=== PATIENT | female | born 1945 | race Caucasian/White ===

== ENCOUNTER → 2020-01-11 10:57 | Outpatient (BNVA) | payer MEDICARE, SELFPAY | PROVIDERS: PCP Family Medicine; Referring Provider Family Medicine; Visit Provider Nurse Practitioner Gerontology | DX: E11.65 Type 2 diabetes mellitus with hyperglycemia (principal); Z79.4 Long term (current) use of insulin; E78.5 Hyperlipidemia, unspecified; I10 Essential (primary) hypertension | CPT/HCPCS: 82947; 99212 ==

== ENCOUNTER 2020-02-08 09:29 | Emergency (ER) | payer MEDICARE, SELFPAY ==
--- NOTE | 2020-02-08 09:48 | ED.FEMALEGU ---
HPI - Female Genitourinary General Chief complaint: Urogenital-Female Stated complaint: uti? Time Seen by Provider: 02/08/20 09:48 Source: patient Mode of arrival: ambulatory Limitations: no limitations History of Present Illness HPI Narrative: 74 y/o female with history of diabetes (Aic 9%), HTN, gastritis, hypothyroidism presenting with 4-5 days of burning urination, urinary frequency and new urinary incontinence. She denies fever, chills, abdominal pain, N/V. She is eating and drinking normally. She has a history of UTI in the past but none in a few years. She is needing to wear a panty liner due to leaking urine. She states the pain is worse at the end of urination. She denies hematuria or flank pain. MD elicited complaint: dysuria, UTI and urinary incontinence Pertinent past history: recurrent UTIs (has not had a UTI in a few years ) Onset (ago): day(s) Location of symptoms: suprapubic Severity: moderate Female Urogenital Radiation: Non-Radiating Severity scale (1-10): 7 Quality of pain: aching Consistency: intermittent Vaginal discharge: none Vaginal bleeding: none Urinary symptoms: Dysuria, Urgency, Frequency and Foul Smelling Urine Exacerbating factors: urination Relieving factors: none Associated symptoms: denies other symptoms Treatment prior to arrival: none Sexual activity: No Patient : No Related Data Home Medications Medication Instructions Recorded Confirmed alendronate 70 mg tablet 70 mg PO QWEEK 12/05/19 01/11/20 apixaban 5 mg tablet 5 mg PO BID 12/05/19 01/11/20 calcium carbonate 500 mg calcium 500 mg PO ONCE tab 12/05/19 01/11/20 (1,250 mg) chewable tablet cholecalciferol (vitamin D3) 25 25 mcg PO DAILY 12/05/19 01/11/20 mcg (1,000 unit) tablet cyanocobalamin (vitamin B-12) 1,000 mcg PO DAILY 12/05/19 01/11/20 1,000 mcg tablet docusate sodium 100 mg capsule 100 mg PO BID 12/05/19 01/11/20 empagliflozin 25 mg tablet 25 mg PO DAILY 12/05/19 01/11/20 fluticasone propionate 50 0 mcg INTRANASAL 12/05/19 01/11/20 mcg/actuation nasal spray,suspension gabapentin 100 mg capsule 100 mg PO cap 12/05/19 01/11/20 insulin degludec 200 unit/mL (3 20 unit SUBCUT DAILY 12/05/19 01/11/20 mL) subcutaneous pen lancets 33 gauge #100 ea 12/05/19 01/11/20 lisinopril 5 mg tablet 5 mg PO DAILY 12/05/19 01/11/20 metformin 1,000 mg tablet 1,000 mg PO BID 12/05/19 01/11/20 multivitamin 1 tab PO DAILY 12/05/19 01/11/20 pantoprazole 40 mg tablet,delayed 40 mg PO DAILY 12/05/19 01/11/20 release Previous Rx's Medication Instructions Recorded pen needle, diabetic 32 gauge x #300 ea 01/05/20 insulin aspart U-100 100 unit/mL See Rx Instructions SUBCUT TID 90 01/11/20 (3 mL) subcutaneous pen Days #30 ml cefuroxime axetil 250 mg PO BID 7 Days #14 tab 02/08/20 Allergies Allergy/AdvReac Type Severity Reaction Status Date / Time Penicillins [PENICILLINS] Allergy Unknown UNKNOWN Verified 01/11/20 11:24 shrimp Allergy Unknown DIFFICULTY Verified 01/11/20 11:24 BREATHING Sulfa (Sulfonamide Allergy Unknown Unknown Verified 01/11/20 11:24 Antibiotics) Review of Systems Review of Systems: Constitutional: No Fever, No Chills Cardiovascular: No Chest Pain, No SOB Respiratory: No Cough, No Sputum Gastrointestinal: No Nausea, No Vomiting, No Diarrhea, No abdominal Pain Genitourinary: + Dysuria, + Urinary Frequency, No Hematuria, + Urinary incontinence Musculoskeletal: No joint pain, No Myalgias Skin: No Skin Lesions, No rash Neuro: No Weakness, No Numbness, No Dizziness, No Headache Endocrine: No Polyuria, No Polydipsia PMFSH Past Medical History Attestation statement: The following information was validated with the patient. Medical History Constipation Diabetes mellitus with hyperglycemia Diverticulitis Dizziness Erosive gastritis Essential hypertension Gastric ulcer Gastritis H pylori ulcer Hiatal hernia Hyperlipidemia LDL goal <100 Hypothyroidism Osteoporosis Vitamin B 12 deficiency Surgical History History of esophagogastroduodenoscopy (EGD) Hx of colonoscopy Hx of hysterectomy Hx of tubal ligation Family History Family History (Updated 12/05/19 @ 08:33 by LEIDA Gregg) Father Liver disease Mother Brain cancer Social History Social History (Updated 01/02/20 @ 13:43 by Cristian Bueno) Smoking Status: Never smoker Advance Directives: No Advance Directives Information Provided: Yes Physical Exam Vital Signs: Vital Signs: Last Vital Signs Temp 97.2 F 02/08/20 09:51 Pulse 101 H 02/08/20 09:51 Resp 16 02/08/20 09:51 BP 136/68 02/08/20 09:51 Pulse Ox 97 02/08/20 09:51 Body Mass Index 24.7 Appearance: Alert. Oriented X3. No acute distress. ENT: Pharynx normal. Neck: Normal inspection. Neck supple. CVS: Normal heart rate and rhythm. Pulses normal. Respiratory: No respiratory distress. Breath sounds normal. Abdomen: Soft with mild suprapubic tenderness, +BS x4. No CVA tenderness : normal external genitalia, no rash or excoriations, no visible vaginal discharge Skin: Skin warm and dry. Normal skin color. Normal skin turgor. No rashes. Extremities: No lower extremity edema. Neuro: Oriented X 3. No motor deficit. No sensory deficit. Course Course Course Narrative: 74 y/o female presenting with dysuria and urinary incontinence. She is vitally stable on arrival aside from mild tachycardia 101 - afebrile and she appears well. No fever, chills, N/V, CVA tenderness. Low suspicion for pyelonephritis. She does not appear to be septic at this time. UA is grossly positive. 1st dose of Ceftin given here, will continue abx for 1 week and have her follow up with PCP. Instructed to return if she develops fever, N/V, abd pain or persistent symptoms despite abx. She is stable for discharge. MDM - Female Genitourinary Differential Diagnosis Differential diagnosis: Likely urinary tract infection, vaginitis and cystitis Medical Records Attestation: I reviewed the patient's medical records. Lab Data Attestation: I reviewed the patient's lab results. Labs: Lab Results 02/08/20 Range/Units 09:45 Urine Color YELLOW Urine Appearance CLOUDY Urine pH 6.5 (5.0-8.0) Ur Specific [place] 1.015 (1.005-1.025) Urine Protein TRACE (NEG-TRACE) MG/DL Urine Glucose (UA) >=1000 H (NEG) MG/DL Urine Ketones NEG (NEG) MG/DL Urine Blood 1+ H (NEG) Urine Nitrite POS H (NEG) Ur Leukocyte Esterase 2+ H (NEG) Urine RBC 1-4 (0) /HPF Urine WBC 76-150 H (0-4) /HPF Ur Squamous Epith Cells NONE /LPF Urine Bacteria 2+ /LPF Discharge Plan Discharge Clinical Impression: Acute UTI Patient Disposition: Home, Self-Care Instructions: Urinary Tract Infection in Older Adults (ED) Additional Instructions: Your urine today showed infection, you are being started on antibiotics. Start them tonight because you were given your 1st dose in the ER. Stay hydrated, drink plenty of water. If you have persistent symptoms or develop fever, chills, abdominal pain, nausea, vomiting, or flank pain seek medical attention or come back to the ER for further evaluation. Follow up with your doctor this week. Prescriptions: New cefuroxime axetil 250 mg tablet 250 mg PO BID 7 Days Qty: 14 RF: 0 No Action (DME) pen needle, diabetic 32 gauge x needle See Rx Instructions ea .ROUTE QID Qty: 300 RF: 1 lisinopril 5 mg tablet 5 mg PO DAILY RF: 0 gabapentin 100 mg capsule 100 mg PO RF: 0 docusate sodium 100 mg capsule 100 mg PO BID RF: 0 cholecalciferol (vitamin D3) 25 mcg (1,000 unit) tablet 25 mcg PO DAILY RF: 0 (DME) lancets 33 gauge misc See Rx Instructions ea .ROUTE .MEDSUPPLY Qty: 100 RF: 0 pantoprazole 40 mg tablet,delayed release (DR/EC) 40 mg PO DAILY RF: 0 cyanocobalamin (vitamin B-12) 1,000 mcg tablet 1,000 mcg PO DAILY RF: 0 multivitamin Tablet 1 tab PO DAILY RF: 0 alendronate 70 mg tablet 70 mg PO QWEEK RF: 0 metformin 1,000 mg tablet 1,000 mg PO BID RF: 0 calcium carbonate 500 mg calcium (1,250 mg) tablet,chewable 500 mg PO ONCE RF: 0 Eliquis 5 mg tablet 5 mg PO BID RF: 0 Jardiance 25 mg tablet 25 mg PO DAILY RF: 0 fluticasone propionate 50 mcg/actuation spray,suspension 0 mcg intranasal RF: 0 Tresiba FlexTouch U-200 200 unit/mL (3 mL) insulin pen 20 unit subcut DAILY RF: 0 insulin aspart U-100 [Novolog Flexpen U-100 Insulin] 100 unit/mL (3 mL) insulin pen See Rx Instructions subcut TID 90 Days Qty: 30 RF: 0
[2020-02-08 09:51] VITALS: BP 136/68; PULSE 101; RESP 16; TEMP 36.2; O2SAT 97; BMI 24.7
[2020-02-08 09:58] LABS: Glucose Urine UA >=1000 MG/DL (NEG); Leukocyte Esterase Urine 2+ (NEG); Nitrite Urine POS (NEG); PH 6.5 (5.0-8.0); Specific Gravity - Urine 1.015 (1.005-1.025); Urine Blood 1+ (NEG); Urine Ketones NEG (NEG); Urine Protein TRACE MG/DL (NEG-TRACE)
[2020-02-08 10:00] LABS: Appearance Urine CLOUDY; Color Urine YELLOW
[2020-02-08 10:12] LABS: Bacteria Urine 2+ /LPF
== END 2020-02-08 11:05 | disposition home or self-care (01) ==
PROVIDERS: Emergency Provider Emergency Medicine; PCP Family Medicine
DX: N39.0 Urinary tract infection, site not specified (principal); E11.9 Type 2 diabetes mellitus without complications; I10 Essential (primary) hypertension; E78.5 Hyperlipidemia, unspecified
CPT/HCPCS: 81001; 87086; 87088; 87186; 99283

== ENCOUNTER → 2020-07-13 08:14 | Outpatient (BNVA) | payer MEDICARE, SELFPAY | PROVIDERS: PCP Family Medicine; Visit Provider Nurse Practitioner Gerontology | CPT/HCPCS: Q3014 ==

== ENCOUNTER 2020-10-13 20:41 | Emergency (ER) | payer MEDICARE, SELFPAY ==
--- NOTE | ~2020-10-13 | CT_ITS ---
EXAMINATION: CT HEAD WITHOUT CONTRAST CLINICAL INFORMATION: Fall. COMPARISON: CT head dated 07/14/2018. TECHNIQUE: Contiguous axial imaging was performed from the skull base to vertex without intravenous administration of contrast. This CT examination was performed using dose optimization techniques as appropriate, variously including the following: *Automated exposure control. *Adjustment of mA and/or kV according to patient size (this includes techniques or standardized protocols for targeted exams where dose is matched to indication/reason for exam; i.e. extremities or head). *Use of iterative reconstruction technique. DLP: 555 mGy-cm FINDINGS: The ventricles and sulci are enlarged consistent with diffuse atrophy. No visualized masses or midline shift are seen. There is no intra-axial or extra-axial hemorrhage. There are no fluid collections. Decreased attenuation is seen in the periventricular white matter compatible with chronic small vessel ischemic disease. The gilbert-white discrimination is preserved. The included paranasal sinuses and mastoid air cells are well aerated. The calvarium is intact. CT/CT head/brain wo con IMPRESSION: No intracranial hemorrhage or mass effect. Generalized atrophy and chronic small vessel white matter ischemic changes. No significant interval change.
--- NOTE | ~2020-10-13 | XR_ITS ---
EXAMINATION: XR KNEE, LEFT CLINICAL INFORMATION: Fall. Bruising. Pain. COMPARISON: None TECHNIQUE: Four views of the left knee. FINDINGS: No acute fracture or dislocation. No significant joint space narrowing or marginal osteophytes. No osseous erosion. No abnormal soft tissue calcification. No significant joint effusion. XR/XR knee LT 4V IMPRESSION: Unremarkable examination.
[2020-10-13 20:45] VITALS: BP 145/64; PULSE 131; RESP 20; O2SAT 97; BMI 20.9
--- NOTE | 2020-10-13 21:13 | ECG_ITS ---
Test Reason : FALL Blood Pressure : / mmHG Vent. Rate : 088 BPM Atrial Rate : 127 BPM P-R Int : 000 ms QRS Dur : 100 ms QT Int : 362 ms P-R-T Axes : 000 -15 033 degrees QTc Int : 438 ms Atrial fibrillation Abnormal ECG When compared with ECG of 14-MAY-2019 07:47, Atrial fibrillation has replaced Sinus rhythm Referred By: Donna Son Electronically Signed By:MAGGIE MITCHELL
--- NOTE | 2020-10-13 21:32 | ED_ITS ---
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 Otherwise, she denies any fever, chills, GI symptoms, chest pain/palpitations, but states that she has been having pain/burning on urination. Related Data Home Medications Medication Instructions Recorded Confirmed alendronate 70 mg tablet 70 mg PO QWEEK 12/05/19 07/13/20 apixaban 5 mg tablet 5 mg PO BID 12/05/19 07/13/20 calcium carbonate 500 mg calcium 500 mg PO ONCE tab 12/05/19 07/13/20 (1,250 mg) chewable tablet cholecalciferol (vitamin D3) 25 25 mcg PO DAILY 12/05/19 07/13/20 mcg (1,000 unit) tablet cyanocobalamin (vitamin B-12) 1,000 mcg PO DAILY 12/05/19 07/13/20 1,000 mcg tablet docusate sodium 100 mg capsule 100 mg PO BID 12/05/19 07/13/20 fluticasone propionate 50 0 mcg INTRANASAL 12/05/19 07/13/20 mcg/actuation nasal spray,suspension gabapentin 100 mg capsule 100 mg PO cap 12/05/19 07/13/20 lancets 33 gauge #100 ea 12/05/19 07/13/20 lisinopril 5 mg tablet 5 mg PO DAILY 12/05/19 07/13/20 metformin 1,000 mg tablet 1,000 mg PO BID 12/05/19 07/13/20 multivitamin 1 tab PO DAILY 12/05/19 07/13/20 pantoprazole 40 mg tablet,delayed 40 mg PO DAILY 12/05/19 07/13/20 release Previous Rx's Medication Instructions Recorded cefuroxime axetil 250 mg tablet 250 mg PO BID 7 Days #14 tab 02/08/20 pen needle, diabetic 32 gauge x #300 ea 06/21/20 insulin degludec 200 unit/mL (3 20 unit SUBCUT DAILY #9 ml 06/29/20 mL) subcutaneous pen (Tresiba FlexTouch U-200 insulin) empagliflozin 25 mg tablet 25 mg PO QAM #90 tab 08/04/20 (Jardiance) insulin aspart U-100 100 unit/mL See Rx Instructions SUBCUT TID 90 08/24/20 (3 mL) subcutaneous pen (Novolog Days #30 ml Flexpen U-100 Insulin aspart) Allergies Allergy/AdvReac Type Severity Reaction Status Date / Time Penicillins [PENICILLINS] Allergy Unknown UNKNOWN Verified 07/13/20 08:36 shrimp Allergy Unknown DIFFICULTY Verified 07/13/20 08:36 BREATHING Sulfa (Sulfonamide Allergy Unknown Unknown Verified 07/13/20 08:36 Antibiotics) Review of Systems Review of Systems: Pertinent positives and negatives as stated in HPI 10 point review of systems is otherwise negative. [facility] Past Medical History Medical History Constipation Diabetes mellitus with hyperglycemia Diverticulitis Dizziness Erosive gastritis Essential hypertension Gastric ulcer Gastritis H pylori ulcer Hiatal hernia Hyperlipidemia LDL goal <100 Hypothyroidism Osteoporosis Vitamin B 12 deficiency Surgical History History of esophagogastroduodenoscopy (EGD) Hx of colonoscopy Hx of hysterectomy Hx of tubal ligation Family History Family History Father Liver disease Mother Brain cancer Social History Social History Household Members: None Advance Directives: No Advance Directives Information Provided: No Physical Exam Vital Signs: Vital Signs: Last Vital Signs Pulse 84 10/13/20 23:32 Resp 15 10/13/20 23:32 BP 118/67 10/13/20 23:32 Pulse Ox 96 10/13/20 23:32 Body Mass Index 20.9 VITAL SIGNS: Reviewed. GENERAL: Well developed, well nourished, in no acute distress. HEAD: Normocephalic/contusion-abrasion to mid forehead EYES: PERRLA, EOMI intact without pain, no nystagmus EARS: Ext canals without abnormality, TMs non-bulging and non-erythematous NOSE: Nares patent bilateral, no septal hematoma but erythema noted to the bridge of the nose without deformity OROPHARYNX: no oral lesions noted, posterior pharynx clear and non-erythematous without noted tonsillar enlargement/erythema/exudates NECK: Supple, no adenopathy LUNGS: Normal breath sounds. No adventitious sounds or accessory muscle use. SpO2<97> CARDIOVASCULAR: IRR/IRR without noted murmurs, no JVD or lower extremity edema. ABDOMEN: Soft, non-tender, non-distended with bowel sounds. MUSCULOSKELETAL: Abrasions to bilateral knees, left knee include some bruising without laceration and pain on palpation EXTREMITIES: No cyanosis, clubbing or edema. SKIN: Inspection of the skin reveals no rashes, abrasions noted to bilateral knees/right 5th MCP on the dorsal aspect/thenar aspect of the right hand NEUROLOGIC: Alert and oriented x 4. Strength and sensation to light touch were grossly intact x 4, no pronator drift, cranial nerves 2-12 grossly intact Course Course Course Narrative: 75-year-old female with history and clinical presentation consistent with mechanical fall but due to expressed dizziness prior to the fall will evaluate for evidence of infection, anemia, or possible arrhythmia although patient is currently nonfocal and hemodynamically stable. Review of all investigations consistent with UTI, as well as hyperglycemia, patient received both antibiotics as well as 1 L of IV fluids with repeat point of care glucose-274. Otherwise, there were no acute findings. Patient was otherwise discharged home in stable condition with remaining course of antibiotics. MDM - Fall Lab Data Result diagrams: 10/13/20 21:39 10/13/20 21:39 Labs: Lab Results 10/13/20 10/13/20 10/13/20 Range/Units 21:39 21:39 21:39 WBC 7.7 (4.8-10.8) X10*3/uL RBC 4.28 (4.20-5.50) X10*6/uL Hgb 13.5 (12.0-16.0) g/dl Hct 41.6 (37-47) % MCV 97.2 (80-98) fL MCH 31.5 (27.0-33.0) pg MCHC 32.5 (31.0-35.0) g/dl RDW 12.3 (11.0-16.0) % Plt Count 214 (160-400) X10*3/uL MPV 10.5 (9.4-12.3) fL Immature Gran % (Auto) 0.3 (0.0-0.4) % Neut % (Auto) 64.7 (45-73) % Lymph % (Auto) 24.4 (20-40) % [place] % (Auto) 9.3 (2-11) % Eos % (Auto) 1.0 (0-4) % Baso % (Auto) 0.3 (0-2) % Lymph # (Auto) 1.9 (1.2-4.9) X10*3/uL [place] # (Auto) 0.7 (0.1-1.2) X10*3/uL Eos # (Auto) 0.1 (0.0-0.4) X10*3/uL Baso # (Auto) 0.0 (0.0-0.2) X10*3/uL Abs Immat Gran (auto) 0.02 (0.00-0.03) X10*3/uL Absolute Neuts (auto) 5.0 (2.0-8.3) X10*3/uL Absolute Nucleated RBC 0.000 (0.0-0.012) X10*3/uL Nucleated RBC % (auto) 0.0 (0.0-0.2) /100WBC PT 16.0 H (9.9-13.0) SEC INR 1.4 H (0.9-1.1) Sodium 139 (135-145) mmol/L Potassium 4.6 (3.3-5.1) mmol/L Chloride 106 (96-108) mmol/L Carbon Dioxide 21 L (22-29) mmol/L Anion Gap 17 (12-20) BUN 17 H (9-16) mg/dL Creatinine 1.00 (0.5-1.4) mg/dL Estim Creat Clear Calc 42.3 Estimated GFR 54 Random Glucose 407 H* (60-115) mg/dL Calcium 10.0 (8.4-10.2) mg/dL Total Bilirubin 0.4 (0.0-1.0) mg/dL AST 83 H (5-31) U/L ALT 89 H (0-31) U/L Alkaline Phosphatase 97 (39-117) U/L Total Protein 7.8 (6.5-8.0) g/dL Albumin 4.3 (3.5-5.0) g/dL Urine Color Urine Appearance Urine pH (5.0-8.0) Ur Specific [place] (1.005-1.025) Urine Protein (NEG-TRACE) MG/DL Urine Glucose (UA) (NEG) MG/DL Urine Ketones (NEG) MG/DL Urine Blood (NEG) Urine Nitrite (NEG) Ur Leukocyte Esterase (NEG) Urine RBC (0) /HPF Urine WBC (0-4) /HPF Ur Squamous Epith Cells /LPF Urine Bacteria /LPF Acetone, Qual Negative (Negative) 10/13/20 Range/Units 21:44 WBC (4.8-10.8) X10*3/uL RBC (4.20-5.50) X10*6/uL Hgb (12.0-16.0) g/dl Hct (37-47) % MCV (80-98) fL MCH (27.0-33.0) pg MCHC (31.0-35.0) g/dl RDW (11.0-16.0) % Plt Count (160-400) X10*3/uL MPV (9.4-12.3) fL Immature Gran % (Auto) (0.0-0.4) % Neut % (Auto) (45-73) % Lymph % (Auto) (20-40) % [place] % (Auto) (2-11) % Eos % (Auto) (0-4) % Baso % (Auto) (0-2) % Lymph # (Auto) (1.2-4.9) X10*3/uL [place] # (Auto) (0.1-1.2) X10*3/uL Eos # (Auto) (0.0-0.4) X10*3/uL Baso # (Auto) (0.0-0.2) X10*3/uL Abs Immat Gran (auto) (0.00-0.03) X10*3/uL Absolute Neuts (auto) (2.0-8.3) X10*3/uL Absolute Nucleated RBC (0.0-0.012) X10*3/uL Nucleated RBC % (auto) (0.0-0.2) /100WBC PT (9.9-13.0) SEC INR (0.9-1.1) Sodium (135-145) mmol/L Potassium (3.3-5.1) mmol/L Chloride (96-108) mmol/L Carbon Dioxide (22-29) mmol/L Anion Gap (12-20) BUN (9-16) mg/dL Creatinine (0.5-1.4) mg/dL Estim Creat Clear Calc Estimated GFR Random Glucose (60-115) mg/dL Calcium (8.4-10.2) mg/dL Total Bilirubin (0.0-1.0) mg/dL AST (5-31) U/L ALT (0-31) U/L Alkaline Phosphatase (39-117) U/L Total Protein (6.5-8.0) g/dL Albumin (3.5-5.0) g/dL Urine Color STRAW Urine Appearance CLEAR Urine pH 5.5 (5.0-8.0) Ur Specific [place] 1.010 (1.005-1.025) Urine Protein NEG (NEG-TRACE) MG/DL Urine Glucose (UA) >=1000 H (NEG) MG/DL Urine Ketones NEG (NEG) MG/DL Urine Blood NEG (NEG) Urine Nitrite POS H (NEG) Ur Leukocyte Esterase NEG (NEG) Urine RBC 0 (0) /HPF Urine WBC 50-75 H (0-4) /HPF Ur Squamous Epith Cells NONE /LPF Urine Bacteria 4+ /LPF Acetone, Qual (Negative) ECG Data Attestation: I personally reviewed and interpreted this ECG as follows: Prior ECG tracings: available for review (05/14/2019 no acute changes on comparison) Interpretation: Atrial fibrillation, HR-88, no STEMI, QRS/QTC are within normal limits. Discharge Plan Discharge Clinical Impression: Accident due to mechanical fall without injury, Abrasion, Acute UTI Patient Disposition: Home, Self-Care Instructions: Fall Prevention for Older Adults (ED), Urinary Tract Infection in Older Adults (ED), Abrasion (ED) Additional Instructions: 1. Reanude todos los medicamentos caseros seg?n lo prescrito. 2. Complete todo el ciclo de antibi?ticos que le hayan recetado para larsen infecci?n del tracto urinario. 3. Jessenia un seguimiento con larsen proveedor de atenci?n primaria el lunes por la ma?gaurav para tommy reevaluaci?n y un tratamiento ambulatorio adicional. Regrese a la sofia de emergencias por un empeoramiento rajiv de los s?ntomas. Prescriptions: No Action (DME) pen needle, diabetic 32 gauge x 5/32 needle See Rx Instructions ea .ROUTE QID Qty: 300 RF: 1 insulin degludec [Tresiba FlexTouch U-200] 200 unit/mL (3 mL) insulin pen 20 unit subcut DAILY Qty: 9 RF: 0 empagliflozin [Jardiance] 25 mg tablet 25 mg PO QAM Qty: 90 RF: 1 insulin aspart U-100 [Novolog Flexpen U-100 Insulin] 100 unit/mL (3 mL) insulin pen See Rx Instructions subcut TID 90 Days Qty: 30 RF: 1 cefuroxime axetil 250 mg tablet 250 mg PO BID 7 Days Qty: 14 RF: 0 lisinopril 5 mg tablet 5 mg PO DAILY RF: 0 gabapentin 100 mg capsule 100 mg PO RF: 0 docusate sodium 100 mg capsule 100 mg PO BID RF: 0 cholecalciferol (vitamin D3) 25 mcg (1,000 unit) tablet 25 mcg PO DAILY RF: 0 (DME) lancets 33 gauge misc See Rx Instructions ea .ROUTE .MEDSUPPLY Qty: 100 RF: 0 pantoprazole 40 mg tablet,delayed release (DR/EC) 40 mg PO DAILY RF: 0 cyanocobalamin (vitamin B-12) 1,000 mcg tablet 1,000 mcg PO DAILY RF: 0 multivitamin Tablet 1 tab PO DAILY RF: 0 alendronate 70 mg tablet 70 mg PO QWEEK RF: 0 metformin 1,000 mg tablet 1,000 mg PO BID RF: 0 calcium carbonate 500 mg calcium (1,250 mg) tablet,chewable 500 mg PO ONCE RF: 0 Eliquis 5 mg tablet 5 mg PO BID RF: 0 fluticasone propionate 50 mcg/actuation spray,suspension 0 mcg intranasal RF: 0 Referrals: Physician,Unknown [Primary Care Provider] - 2 days Print Language: Portuguese
[2020-10-13 21:43] LABS: MANUAL DIFF FLAG NO
[2020-10-13 21:47] LABS: Basophils Percent Auto 0.3 % (0-2); Eosinophils Absolute Auto 0.1 X10*3/uL (0.0-0.4); Hematocrit 41.6 % (37-47); Hemoglobin 13.5 g/dl (12.0-16.0); Imm Gran Abs Auto 0.02 X10*3/uL (0.00-0.03); Imm Gran Pct Auto 0.3 % (0.0-0.4); Lymphocytes Absolute Auto 1.9 X10*3/uL (1.2-4.9); Lymphocytes Percent Auto 24.4 % (20-40); Mean Corpuscular HGB Conc 32.5 g/dl (31.0-35.0); Mean Corpuscular Hemoglobin 31.5 pg (27.0-33.0); Mean Corpuscular Volume 97.2 fL (80-98); Mean Platelet Volume 10.5 fL (9.4-12.3); Monocytes Absolute Auto 0.7 X10*3/uL (0.1-1.2); Monocytes Percent Auto 9.3 % (2-11); Neutrophils Percent Auto 64.7 % (45-73); Platelet Count 214 X10*3/uL (160-400); Red Blood Count 4.28 X10*6/uL (4.20-5.50); Red Cell Distribution Width 12.3 % (11.0-16.0); White Blood Count 7.7 X10*3/uL (4.8-10.8)
[2020-10-13 21:54] VITALS: BP 199/84; PULSE 113; RESP 16; O2SAT 96
[2020-10-13 21:55] LABS: Glucose Urine UA >=1000 MG/DL (NEG); Leukocyte Esterase Urine NEG (NEG); Nitrite Urine POS (NEG); PH 5.5 (5.0-8.0); UACC Culture Trigger YES; Urine Blood NEG (NEG); Urine Ketones NEG (NEG); Urine Protein NEG (NEG-TRACE)
[2020-10-13] MEDS: Acetaminophen 325 MG TABLET 975 MG PO (21:55)
[2020-10-13 21:57] LABS: Appearance Urine CLEAR; Color Urine STRAW
--- NOTE | 2020-10-13 22:01 | PC.NURSE ---
BP 199/84 notified
[2020-10-13 22:16] LABS: Bacteria Urine 4+ /LPF; RBC Urine 0 /HPF (0); WBC Urine 50-75 /HPF (0-4)
[2020-10-13 22:17] LABS: INTERNATIONAL NORM RATIO 1.4 (0.9-1.1)
[2020-10-13 22:28] LABS: Alanine Aminotransferase 89 U/L (0-31); Albumin Level 4.3 g/dL (3.5-5.0); Alkaline Phosphatase 97 U/L (39-117); Anion Gap 17 (12-20); Aspartate Amino Transferase 83 U/L (5-31); Bilirubin Total 0.4 mg/dL (0.0-1.0); Blood Urea Nitrogen 17 mg/dL (9-16); Carbon Dioxide 21 mmol/L (22-29); Chloride 106 mmol/L (96-108); Creatinine Clr Calc Pharmacy 42.3; Estimated Glomerular Filt Rate 54; Glucose Random 407 mg/dL (60-115); Potassium 4.6 mmol/L (3.3-5.1); Sodium 139 mmol/L (135-145); Total Protein 7.8 g/dL (6.5-8.0)
--- NOTE | 2020-10-13 22:29 | PC.NURSE ---
Blood glucose 407 ([facility]) notified
[2020-10-13] MEDS: cefTRIAXone sodium 1 GM in 0.9 % Sodium Chloride 50 ML IV (22:57)
[2020-10-13] MEDS: 0.9 % Sodium Chloride 1,000 ML 999 ML IV (22:58)
[2020-10-13 22:59] VITALS: PULSE 100; RESP 16
[2020-10-13 23:01] LABS: Acetone, serum QL Negative (Negative)
[2020-10-13 23:32] VITALS: BP 118/67; PULSE 84; RESP 15; O2SAT 96
--- NOTE | 2020-10-13 23:59 | PC.NURSE ---
POC 270 MD notified
[2020-10-14 00:02] LABS: Glucose, Whole Blood 270 mg/dL (60-115)
[2020-10-14] MEDS: Bacitracin Oint 14 GM TUBE 1 APPL TOPICAL (00:20)
== END 2020-10-14 00:33 | disposition home or self-care (01) ==
PROVIDERS: Emergency Provider Student in an Organized Health Care Education/Training Program
DX: N39.0 Urinary tract infection, site not specified (principal); S00.81XA Abrasion of other part of head, initial encounter; S80.212A Abrasion, left knee, initial encounter; S80.211A Abrasion, right knee, initial encounter; S60.511A Abrasion of right hand, initial encounter; W01.0XXA Fall on same level from slipping, tripping and stumbling without subsequent striking against object, initial encounter; Y93.01 Activity, walking, marching and hiking; Y92.480 Sidewalk as the place of occurrence of the external cause; Y99.9 Unspecified external cause status
CPT/HCPCS: 36415; 70450; 73564; 80053; 81001; 82009; 82947; 85025; 85610; 87086; 87088; 87186; 93005; 96361; 96365; 99284; J0696

== ENCOUNTER 2020-10-15 14:00 | Emergency (ER) | payer MEDICARE, SELFPAY ==
--- NOTE | ~2020-10-15 | CT_ITS ---
EXAMINATION: CT CHEST WITHOUT CONTRAST CLINICAL INFORMATION: post fall R anterior upper rib pain and swelling COMPARISON: Chest radiograph 05/14/2019 TECHNIQUE: Multidetector volumetric CT imaging of the chest was done. Axial MIP volume rendering provided. Sagittal and coronal reformatted images were obtained. This CT examination was performed using dose optimization techniques as appropriate, variously including the following: *Automated exposure control *Adjustment of mA and/or kV according to patient size (this includes techniques or standardized protocols for targeted exams where dose is matched to indication/reason for exam; i.e. extremities or head) *Use of iterative reconstruction technique DLP: 223 mGy-cm FINDINGS: LUNGS: There is a 2 mm subpleural right upper lobe nodule (7:123). There is a tiny calcified pleural-based granuloma in the left lower lobe (7:225). The lungs are otherwise clear with no evidence of inflammation or worrisome nodules. MEDIASTINUM: The thyroid is atrophic. Heart size normal. Calcifications present in the aortic leaflets with mild coronary calcium. No mediastinal or hilar lymphadenopathy. No mediastinal hematomas. PLEURA: There is no pleural effusion or pneumothorax. No pleural mass or thickening. AXILLA: No lymphadenopathy. UPPER ABDOMEN: Unremarkable. OSSEOUS STRUCTURES: No rib fractures seen. Degenerative changes are present in the spine with scoliosis convex to the right. CT/CT chest wo con IMPRESSION: No acute intrathoracic disease seen status post fall. Incidentally noted tiny 2 mm subpleural noncalcified nodule which almost certainly needs no further follow-up. According to the UPDATED 2017 Fleischner Society recommendations, the advised follow-up imaging for solid nodules < 6 mm is: LOW RISK PATIENT: No routine follow-up. HIGH RISK PATIENT: Optional CT at 12 months.
[2020-10-15 14:39] VITALS: BP 139/71; PULSE 110; RESP 18; TEMP 37; O2SAT 96
--- NOTE | 2020-10-15 16:32 | ED.GENADULT ---
HPI - General Adult General Chief complaint: General Medical Stated complaint: lump on chest bone Time Seen by Provider: 10/15/20 16:31 Source: patient, family, old records reviewed and dedicated owner operator Mode of arrival: ambulatory Limitations: no limitations History of Present Illness HPI narrative: 75 yo female hx of HLD, DM, afib on eliquis, HTN here after witnessed fall on 10/13 - had negative knee xray and head CT on 10/13 dx with UTI on ceftin escobedo S E. Coli comes in today with c/o persistent swelling and pain over R upper anterior rib since fall - no xray or CT scan done at that time, overall is improving otherwise MD complaint: chest wall pain Onset (ago): day(s) (2) Location: chest Radiation: non-radiation Severity: moderate Quality: aching Pain Consistency: constant Relieving factors: none Exacerbating factors: movement and other (palpation) Associated symptoms: denies other symptoms Treatments prior to arrival: none Related Data Home Medications Medication Instructions Recorded Confirmed alendronate 70 mg tablet 70 mg PO QWEEK 12/05/19 07/13/20 apixaban 5 mg tablet 5 mg PO BID 12/05/19 07/13/20 calcium carbonate 500 mg calcium 500 mg PO ONCE tab 12/05/19 07/13/20 (1,250 mg) chewable tablet cholecalciferol (vitamin D3) 25 25 mcg PO DAILY 12/05/19 07/13/20 mcg (1,000 unit) tablet cyanocobalamin (vitamin B-12) 1,000 mcg PO DAILY 12/05/19 07/13/20 1,000 mcg tablet docusate sodium 100 mg capsule 100 mg PO BID 12/05/19 07/13/20 fluticasone propionate 50 0 mcg INTRANASAL 12/05/19 07/13/20 mcg/actuation nasal spray,suspension gabapentin 100 mg capsule 100 mg PO cap 12/05/19 07/13/20 lancets 33 gauge #100 ea 12/05/19 07/13/20 lisinopril 5 mg tablet 5 mg PO DAILY 12/05/19 07/13/20 metformin 1,000 mg tablet 1,000 mg PO BID 12/05/19 07/13/20 multivitamin 1 tab PO DAILY 12/05/19 07/13/20 pantoprazole 40 mg tablet,delayed 40 mg PO DAILY 12/05/19 07/13/20 release Previous Rx's Medication Instructions Recorded cefuroxime axetil 250 mg tablet 250 mg PO BID 7 Days #14 tab 02/08/20 pen needle, diabetic 32 gauge x #300 ea 06/21/20 insulin degludec 200 unit/mL (3 20 unit SUBCUT DAILY #9 ml 06/29/20 mL) subcutaneous pen (Tresiba FlexTouch U-200 insulin) empagliflozin 25 mg tablet 25 mg PO QAM #90 tab 08/04/20 (Jardiance) insulin aspart U-100 100 unit/mL See Rx Instructions SUBCUT TID 90 08/24/20 (3 mL) subcutaneous pen (Novo Days #30 ml Flexpen U-100 Insulin aspart) cefdinir 300 mg capsule 300 mg PO Q12H 5 Days #10 cap 10/14/20 lidocaine 4 % topical patch 1 patch TOPICAL DAILY PRN #10 ea 10/15/20 Allergies Allergy/AdvReac Type Severity Reaction Status Date / Time Penicillins [PENICILLINS] Allergy Unknown UNKNOWN Verified 07/13/20 08:36 shrimp Allergy Unknown DIFFICULTY Verified 07/13/20 08:36 BREATHING Sulfa (Sulfonamide Allergy Unknown Unknown Verified 07/13/20 08:36 Antibiotics) Review of Systems Review of Systems: Constitutional : No Weight loss, No Fever, No Chills ENT/Mouth : No sore throat, No Rhinorrhea Eyes: No Eye Pain, No Swelling Cardiovascular : pos Chest Pain, no SOB, no Dyspnea on Exertion, No Orthopnea, No Edema, No Palpitations Respiratory : No Cough, No Sputum Gastrointestinal : no Nausea, No Vomiting, No Diarrhea, No abdominal Pain, No Hematochezia, No Melena Genitourinary : No Dysuria, No Urinary Frequency Musculoskeletal : No joint pain, No Myalgias, No Joint Swelling Skin : No Skin Lesions, No rash Neuro : No Weakness, No Numbness, No Dizziness, No Headache Psych : No Anxiety/Panic, No Depression Heme/Lymph: No Bruising, No Lymphadenopathy Endocrine : No Polyuria, No Polydipsia All other systems reviewed and are negative [facility] Past Medical History Attestation statement: The following information was validated with the patient. Source: old records reviewed Medical History Atrial fibrillation Constipation Diabetes mellitus with hyperglycemia Diverticulitis Dizziness Erosive gastritis Essential hypertension Gastric ulcer Gastritis H pylori ulcer Hiatal hernia Hyperlipidemia LDL goal <100 Hypothyroidism Osteoporosis Vitamin B 12 deficiency Surgical History History of esophagogastroduodenoscopy (EGD) Hx of colonoscopy Hx of hysterectomy Hx of tubal ligation Family History Family History Father Liver disease Mother Brain cancer Social History Social History Household Members: None Alcohol intake: unknown Patient Tobacco Use Status: Never used Tobacco Advance Directives: No Advance Directives Information Provided: Yes Physical Exam Vital Signs: Vital Signs: Last Vital Signs Temp 98.6 F 10/15/20 14:39 Pulse 110 H 10/15/20 14:39 Resp 18 10/15/20 14:39 BP 139/71 10/15/20 14:39 Pulse Ox 96 10/15/20 14:39 Body Mass Index 20.0 Appearance: Alert. Oriented X3. No acute distress. Eyes: Pupils equal, round and reactive to light. ENT: Pharynx normal. healing contusion and abrasions to forehead Neck: Normal inspection. Neck supple. CVS: Normal heart rate and rhythm. Pulses normal. Chest: ttp along anterior upper chest area near 3/4th ribs contusion felt no crepitus no skin changes Respiratory: No respiratory distress. Breath sounds normal. Abdomen: Soft and nontender. Skin: Skin warm and dry. Normal skin color. Normal skin turgor. Extremities: No lower extremity edema. No calf ttp L knee healing abrasions noted Neuro: Oriented X 3. No motor deficit. No sensory deficit. Course Course Course Narrative: chest CT negative for trauma will treat as contusion Medical Decision Making MDM Narrative Medical decision making narrative: 75 yo female hx of HLD, DM, afib on eliquis, HTN here after witnessed fall on 10/13 - had negative knee xray and head CT on 10/13 dx with UTI on ceftin escobedo S E. Coli comes in today with c/o persistent swelling and pain over R upper anterior rib since fall - no xray or CT scan done at that time. Complaint at this time is isolated chest injury - will obtain CT scan to r/o fracture/hematoma of chest wall. Otherwise improving. Dispo per results and findings. Discharge Plan Discharge Clinical Impression: Chest wall hematoma Qualifiers: Encounter type: initial encounter Laterality: right Qualified Code(s): S20.211A - Contusion of right front wall of thorax, initial encounter Patient Disposition: Home, Self-Care Instructions: Chest Wall Pain (ED), Hematoma (ED) Additional Instructions: return to ED for any worsening symptoms or concerns Prescriptions: New lidocaine 4 % adhesive patch,medicated 1 patch topical DAILY PRN (Reason: pain) Qty: 10 RF: 0 No Action (DME) pen needle, diabetic 32 gauge x /32 needle See Rx Instructions ea .ROUTE QID Qty: 300 RF: 1 insulin degludec [Tresiba FlexTouch U-200] 200 unit/mL (3 mL) insulin pen 20 unit subcut DAILY Qty: 9 RF: 0 empagliflozin [Jardiance] 25 mg tablet 25 mg PO QAM Qty: 90 RF: 1 insulin aspart U-100 [Novolog Flexpen U-100 Insulin] 100 unit/mL (3 mL) insulin pen See Rx Instructions subcut TID 90 Days Qty: 30 RF: 1 cefuroxime axetil 250 mg tablet 250 mg PO BID 7 Days Qty: 14 RF: 0 cefdinir 300 mg capsule 300 mg PO Q12H 5 Days Qty: 10 RF: 0 lisinopril 5 mg tablet 5 mg PO DAILY RF: 0 gabapentin 100 mg capsule 100 mg PO RF: 0 docusate sodium 100 mg capsule 100 mg PO BID RF: 0 cholecalciferol (vitamin D3) 25 mcg (1,000 unit) tablet 25 mcg PO DAILY RF: 0 (DME) lancets 33 gauge misc See Rx Instructions ea .ROUTE .MEDSUPPLY Qty: 100 RF: 0 pantoprazole 40 mg tablet,delayed release (DR/EC) 40 mg PO DAILY RF: 0 cyanocobalamin (vitamin B-12) 1,000 mcg tablet 1,000 mcg PO DAILY RF: 0 multivitamin Tablet 1 tab PO DAILY RF: 0 alendronate 70 mg tablet 70 mg PO QWEEK RF: 0 metformin 1,000 mg tablet 1,000 mg PO BID RF: 0 calcium carbonate 500 mg calcium (1,250 mg) tablet,chewable 500 mg PO ONCE RF: 0 Eliquis 5 mg tablet 5 mg PO BID RF: 0 fluticasone propionate 50 mcg/actuation spray,suspension 0 mcg intranasal RF: 0 Referrals: Cassia Putnam DO [Primary Care Provider] - 5 days (if not better) Print Language: Tamazight
[2020-10-15 18:25] VITALS: BP 129/53; PULSE 82; RESP 16; TEMP 36.8; O2SAT 98
[2020-10-15] MEDS: Lidocaine 4 % Patch ADH..PATCH 1 PATCH TRANSDERMA (18:34)
== END 2020-10-15 18:52 | disposition home or self-care (01) ==
PROVIDERS: Emergency Provider Emergency Medicine; PCP Family Medicine
DX: S20.211D Contusion of right front wall of thorax, subsequent encounter (principal); W19.XXXD Unspecified fall, subsequent encounter; R07.89 Other chest pain; E11.9 Type 2 diabetes mellitus without complications; I48.91 Unspecified atrial fibrillation; I10 Essential (primary) hypertension; Z79.01 Long term (current) use of anticoagulants; Z79.4 Long term (current) use of insulin; Z79.899 Other long term (current) drug therapy
CPT/HCPCS: 71250; 99284

== ENCOUNTER 2020-12-07 12:53 | Emergency (ER) | payer MEDICARE, SELFPAY ==
[2020-12-07] VITALS (11 sets, daily range): BP systolic 133–161; BP diastolic 62–89; PULSE 90–118; RESP 16–20; TEMP 36.9–37.8; O2SAT 95–97; BMI 19.6
--- NOTE | ~2020-12-07 | CT_ITS ---
EXAMINATION: CT BRAIN AND CT CERVICAL SPINE WITHOUT CONTRAST. CLINICAL INFORMATION: Fall. COMPARISON: CT brain 10/13/2020 TECHNIQUE: 5 mm thin axial and reformatted 2 mm thin sagittal coronal images of brain were obtained. Axial 3 mm thin and reformatted 2 mm thin sagittal and coronal images of cervical spine were obtained without contrast. DLP 937 FINDINGS: Brain: There is no acute intra-axial, extra-axial bleed, masses or midline shift. There is no acute infarction in evolution. No edema. The lateral ventricles are symmetrical but enlarged. There is diffuse periventricular hypodensity suggestive of chronic small vessel ischemic changes. Bone windows reveal no calvarial abnormality. There is no scalp soft tissue abnormality either. Bilateral paranasal sinuses and mastoid air cells are well-aerated. Cervical spine: There is mild reversal of cervical lordosis. There is grade 1 anterolisthesis C3 over C4. Rest of the vertebral alignment is normal. Loss of C4-C5, C5-C6 and C6-C7 disc heights is noted. There is moderate ventral spondylosis C4-C5 disc level. The craniovertebral junction and the C1-C2 alignment is normal. There is no visible acute fracture, dislocation or subluxation seen. The prevertebral and paravertebral soft tissues are normal. CT/CT cervical spine wo con IMPRESSION: No acute intracranial process seen. Age-related cerebral volume loss with chronic small vessel ischemic changes in both cerebral hemispheres. Mild reversal of cervical lordosis without any acute fracture or dislocation. There are degenerative disc changes C4-C5 through C6-C7 disc levels. Mild degenerative changes also seen in the upper dorsal spine.
--- NOTE | ~2020-12-07 | CT_ITS ---
EXAMINATION: CT BRAIN AND CT CERVICAL SPINE WITHOUT CONTRAST. CLINICAL INFORMATION: Fall. COMPARISON: CT brain 10/13/2020 TECHNIQUE: 5 mm thin axial and reformatted 2 mm thin sagittal coronal images of brain were obtained. Axial 3 mm thin and reformatted 2 mm thin sagittal and coronal images of cervical spine were obtained without contrast. DLP 937 FINDINGS: Brain: There is no acute intra-axial, extra-axial bleed, masses or midline shift. There is no acute infarction in evolution. No edema. The lateral ventricles are symmetrical but enlarged. There is diffuse periventricular hypodensity suggestive of chronic small vessel ischemic changes. Bone windows reveal no calvarial abnormality. There is no scalp soft tissue abnormality either. Bilateral paranasal sinuses and mastoid air cells are well-aerated. Cervical spine: There is mild reversal of cervical lordosis. There is grade 1 anterolisthesis C3 over C4. Rest of the vertebral alignment is normal. Loss of C4-C5, C5-C6 and C6-C7 disc heights is noted. There is moderate ventral spondylosis C4-C5 disc level. The craniovertebral junction and the C1-C2 alignment is normal. There is no visible acute fracture, dislocation or subluxation seen. The prevertebral and paravertebral soft tissues are normal. CT/CT head/brain wo con IMPRESSION: No acute intracranial process seen. Age-related cerebral volume loss with chronic small vessel ischemic changes in both cerebral hemispheres. Mild reversal of cervical lordosis without any acute fracture or dislocation. There are degenerative disc changes C4-C5 through C6-C7 disc levels. Mild degenerative changes also seen in the upper dorsal spine.
--- NOTE | 2020-12-07 13:23 | ECG_ITS ---
Test Reason : FALL Blood Pressure : / mmHG Vent. Rate : 101 BPM Atrial Rate : 101 BPM P-R Int : 236 ms QRS Dur : 096 ms QT Int : 350 ms P-R-T Axes : 054 -32 030 degrees QTc Int : 453 ms Sinus tachycardia with 1st degree A-V block Left axis deviation Abnormal ECG When compared with ECG of 13-OCT-2020 22:05, Sinus rhythm has replaced Atrial fibrillation Referred By: Hannah Gimenez Electronically Signed By:MATEUS FRIAS MD
--- NOTE | 2020-12-07 13:23 | PC.NURSE ---
RN aware POC 135
[2020-12-07 13:24] LABS: Glucose, Whole Blood 135 mg/dL (60-115)
[2020-12-07 14:03] LABS: Appearance Urine CLEAR; Color Urine YELLOW; Glucose Urine UA >=1000 MG/DL (NEG); Leukocyte Esterase Urine NEG (NEG); Nitrite Urine NEG (NEG); PH 7.5 (5.0-8.0); Specific Gravity - Urine 1.015 (1.005-1.025); Urine Blood NEG (NEG); Urine Ketones 15 MG/DL (NEG); Urine Protein NEG (NEG-TRACE)
[2020-12-07 14:11] LABS: RBC Urine 0-2 /HPF (0)
[2020-12-07 14:12] LABS: Mucus Urine 1+ /LPF; Squamous Epithelial Cell Urine 1+ /LPF; UACC Culture Trigger YES
[2020-12-07 14:17] LABS: MANUAL DIFF FLAG NO
[2020-12-07 14:18] LABS: Basophils Percent Auto 0.3 % (0-2); Eosinophils Percent Auto 0.1 % (0-4); Hematocrit 39.5 % (37-47); Hemoglobin 13.3 g/dl (12.0-16.0); Imm Gran Abs Auto 0.02 X10*3/uL (0.00-0.03); Imm Gran Pct Auto 0.3 % (0.0-0.4); Lymphocytes Absolute Auto 0.9 X10*3/uL (1.2-4.9); Lymphocytes Percent Auto 13.4 % (20-40); Mean Corpuscular HGB Conc 33.7 g/dl (31.0-35.0); Mean Corpuscular Hemoglobin 31.6 pg (27.0-33.0); Mean Corpuscular Volume 93.8 fL (80-98); Mean Platelet Volume 10.4 fL (9.4-12.3); Monocytes Absolute Auto 0.5 X10*3/uL (0.1-1.2); Monocytes Percent Auto 7.7 % (2-11); Neutrophils Absolute Auto 5.4 X10*3/uL (2.0-8.3); Neutrophils Percent Auto 78.2 % (45-73); Platelet Count 187 X10*3/uL (160-400); Red Blood Count 4.21 X10*6/uL (4.20-5.50); Red Cell Distribution Width 12.4 % (11.0-16.0); White Blood Count 6.9 X10*3/uL (4.8-10.8)
[2020-12-07 14:31] LABS: Anion Gap 15 (12-20); Blood Urea Nitrogen 9 mg/dL (9-16); Calcium 9.4 mg/dL (8.4-10.2); Carbon Dioxide 24 mmol/L (22-29); Chloride 104 mmol/L (96-108); Estimated Glomerular Filt Rate > 60; Glucose Random 127 mg/dL (60-115); Potassium 4.5 mmol/L (3.3-5.1); Sodium 138 mmol/L (135-145)
--- NOTE | 2020-12-07 14:36 | PHA.MEDREC ---
Pharmacy Consult ? Medication Reconciliation Pharmacy has completed the medication reconciliation. There are no remarkable issues for provider's attention. I spoke with patients son who is also her MANAGER DEVELOPMENT. Zhane Tavera, MarcellD
--- NOTE | 2020-12-07 15:02 | ED.FALL ---
HPI - Fall General Chief Complaint: Fall Stated Complaint: fall/on blood thinners Time Seen by Provider: 12/07/20 13:22 History of Present Illness HPI Narrative: Patient is 75-year-old female with a history of multiple falls in the past. She has a history of diabetes. History of hypertension. History of atrial fibrillation on Eliquis. Been in the emergency department in the past for falling. No cough and no congestion or upper respiratory symptoms. No diaphoresis. No chest pain. Patient from home. Son take care patient 4 hours a day. Related Data Home Medications Medication Instructions Recorded Confirmed alendronate 70 mg tablet 70 mg PO QWEEK 12/05/19 12/07/20 apixaban 5 mg tablet 5 mg PO BID 12/05/19 12/07/20 calcium carbonate 500 mg calcium 500 mg PO BID tab 12/05/19 12/07/20 (1,250 mg) chewable tablet cholecalciferol (vitamin D3) 25 25 mcg PO DAILY 12/05/19 12/07/20 mcg (1,000 unit) tablet cyanocobalamin (vitamin B-12) 1,000 mcg PO DAILY 12/05/19 12/07/20 1,000 mcg tablet fluticasone propionate 50 100 mcg INTRANASAL DAILY 12/05/19 12/07/20 mcg/actuation nasal spray,suspension gabapentin 100 mg capsule 100 mg PO BEDTIME cap 12/05/19 12/07/20 lancets 33 gauge #100 ea 12/05/19 12/07/20 lisinopril 5 mg tablet 5 mg PO DAILY 12/05/19 12/07/20 metformin 1,000 mg tablet 1,000 mg PO BID 12/05/19 12/07/20 multivitamin 1 tab PO DAILY 12/05/19 12/07/20 pantoprazole 40 mg tablet,delayed 40 mg PO DAILY 12/05/19 12/07/20 release acetaminophen 325 mg tablet 650 mg PO Q6H PRN 12/07/20 12/07/20 atorvastatin 40 mg tablet 1 tab PO BEDTIME 12/07/20 12/07/20 diltiazem HCl 240 mg 1 cap PO QAM 12/07/20 12/07/20 capsule,extended release 24 hr (Cartia XT) ferrous sulfate 325 mg (65 mg 1 tab PO QAM 12/07/20 12/07/20 iron) tablet (FeroSul) insulin aspart U-100 100 unit/mL 8 unit SUBCUT TIDAC 12/07/20 12/07/20 (3 mL) subcutaneous pen (Novolog Flexpen U-100 Insulin aspart) loratadine 10 mg tablet 1 tab PO DAILY 12/07/20 12/07/20 metformin 500 mg tablet 1 tab PO DAILY 12/07/20 12/07/20 trazodone 50 mg tablet 1 tab PO BEDTIME 12/07/20 12/07/20 Previous Rx's Medication Instructions Recorded empagliflozin 25 mg tablet 25 mg PO QAM #90 tab 08/04/20 (Jardiance) insulin degludec 200 unit/mL (3 20 unit SUBCUT DAILY 90 Days #9 ml 10/16/20 mL) subcutaneous pen (Tresiba FlexTouch U-200 insulin) pen needle, diabetic 32 gauge x #300 ea 12/07/20 Allergies Allergy/AdvReac Type Severity Reaction Status Date / Time Penicillins [PENICILLINS] Allergy Unknown UNKNOWN Verified 12/07/20 13:13 shrimp Allergy Unknown DIFFICULTY Verified 12/07/20 13:13 BREATHING Sulfa (Sulfonamide Allergy Unknown Unknown Verified 12/07/20 13:13 Antibiotics) Review of Systems Review of Systems: Positive Generalized malaise No chest pain Or diaphoresis No fever All systems reviewed otherwise neck Yes all other systems are reviewed and are negative [facility] Past Medical History Attestation statement: The following information was validated with the patient. [facility] Narrative: Patient is 75-year-old female with a history of atrial fibrillation. History of diabetes. Baseline is on Eliquis. Has baseline history of dizziness. Patient was walking felt dizzy. Fell might have hit her head There was no loss of consciousness. The fall similar to previous bouts. Patient denies any nausea vomiting. Patient from home. Son brought patient in for further evaluation. No chest pain. No diaphoresis. Medical History Atrial fibrillation Constipation Diabetes mellitus with hyperglycemia Diverticulitis Dizziness Erosive gastritis Essential hypertension Gastric ulcer Gastritis H pylori ulcer Hiatal hernia Hyperlipidemia LDL goal <100 Hypothyroidism Osteoporosis Vitamin B 12 deficiency Surgical History History of esophagogastroduodenoscopy (EGD) Hx of colonoscopy Hx of hysterectomy Hx of tubal ligation Family History Family History Father Liver disease Mother Brain cancer Social History Social History Household Members: None Alcohol intake: never Patient Tobacco Use Status: Never used Tobacco Use of substances other than those prescribed or required for medical reasons: No Advance Directives: No Advance Directives Information Provided: Yes Physical Exam Vital Signs: Vital Signs: Last Vital Signs Temp 100.1 F 12/07/20 14:51 Pulse 118 H 12/07/20 15:59 Resp 18 12/07/20 14:51 BP 151/74 H 12/07/20 15:59 Pulse Ox 96 12/07/20 14:51 Body Mass Index 19.6 Appearance: Alert. Oriented X3. No acute distress. Eyes: Pupils equal, round and reactive to light. ENT: Pharynx normal. Neck: Normal inspection. Neck supple. No lymph nodes noted. No crepitus CVS: Normal heart rate and rhythm. Pulses normal. Normal S1 and S2 Respiratory: No respiratory distress. Breath sounds normal. No Wheezing. No rales Abdomen: Soft and nontender. No rigidity. No distention. good BS x4 Skin: Skin warm and dry. Normal skin color. Normal skin turgor. Extremities: No lower extremity edema. Neurovascular intact to all extremities. No Lacerations. No Rash Neuro: Oriented X 3. No motor deficit. No sensory deficit. Moving all extermities. No slurred speech MDM - Fall MDM Narrative Medical decision making narrative: History of frequent falls. Patient on Eliquis secondary to atrial fibrillation. CT scan of the head and C-spine were both grossly negative for any acute evidence of bleeding. No fracture. Patient's EKG showed a sinus pattern heart rate was 100 TN QRS QT within normal limits. There is no acute ST segment elevation noted. Troponin was negative. Patient's urine was negative for any acute evidence of infection. Frequent dizziness. Which is baseline. Attempted to ambulate patient unfortunately patient is not steady. Failed ambulation trail by Physical therapy. Patient is being evaluated by case management for likely rehab placement. Currently in stable condition. Differential Diagnosis Differential diagnosis: Likely syncope Medical Records Attestation: I reviewed the patient's medical records. Lab Data Attestation: I reviewed the patient's lab results. Result diagrams: 12/07/20 14:10 12/07/20 14:10 Labs: Lab Results 12/07/20 12/07/20 12/07/20 Range/Units 13:19 13:55 14:10 WBC 6.9 (4.8-10.8) X10*3/uL RBC 4.21 (4.20-5.50) X10*6/uL Hgb 13.3 (12.0-16.0) g/dl Hct 39.5 (37-47) % MCV 93.8 (80-98) fL MCH 31.6 (27.0-33.0) pg MCHC 33.7 (31.0-35.0) g/dl RDW 12.4 (11.0-16.0) % Plt Count 187 (160-400) X10*3/uL MPV 10.4 (9.4-12.3) fL Immature Gran % (Auto) 0.3 (0.0-0.4) % Neut % (Auto) 78.2 H (45-73) % Lymph % (Auto) 13.4 L (20-40) % [place] % (Auto) 7.7 (2-11) % Eos % (Auto) 0.1 (0-4) % Baso % (Auto) 0.3 (0-2) % Lymph # (Auto) 0.9 L (1.2-4.9) X10*3/uL [place] # (Auto) 0.5 (0.1-1.2) X10*3/uL Eos # (Auto) 0.0 (0.0-0.4) X10*3/uL Baso # (Auto) 0.0 (0.0-0.2) X10*3/uL Abs Immat Gran (auto) 0.02 (0.00-0.03) X10*3/uL Absolute Neuts (auto) 5.4 (2.0-8.3) X10*3/uL Absolute Nucleated RBC 0.000 (0.0-0.012) X10*3/uL Nucleated RBC % (auto) 0.0 (0.0-0.2) /100WBC Sodium (135-145) mmol/L Potassium (3.3-5.1) mmol/L Chloride (96-108) mmol/L Carbon Dioxide (22-29) mmol/L Anion Gap (12-20) BUN (9-16) mg/dL Creatinine (0.5-1.4) mg/dL Estim Creat Clear Calc Estimated GFR POC Glucose 135 H (60-115) mg/dL Random Glucose (60-115) mg/dL Calcium (8.4-10.2) mg/dL Troponin I High Sens (<3.5-17.0) ng/L Urine Color YELLOW Urine Appearance CLEAR Urine pH 7.5 (5.0-8.0) Ur Specific [place] 1.015 (1.005-1.025) Urine Protein NEG (NEG-TRACE) MG/DL Urine Glucose (UA) >=1000 H (NEG) MG/DL Urine Ketones 15 (NEG) MG/DL Urine Blood NEG (NEG) Urine Nitrite NEG (NEG) Ur Leukocyte Esterase NEG (NEG) Urine RBC 0-2 (0) /HPF Urine WBC 5-9 H (0-4) /HPF Ur Squamous Epith Cells 1+ /LPF Urine Bacteria NONE /LPF Urine Mucus 1+ /LPF 12/07/20 12/07/20 12/07/20 Range/Units 14:10 14:10 15:46 WBC (4.8-10.8) X10*3/uL RBC (4.20-5.50) X10*6/uL Hgb (12.0-16.0) g/dl Hct (37-47) % MCV (80-98) fL MCH (27.0-33.0) pg MCHC (31.0-35.0) g/dl RDW (11.0-16.0) % Plt Count (160-400) X10*3/uL MPV (9.4-12.3) fL Immature Gran % (Auto) (0.0-0.4) % Neut % (Auto) (45-73) % Lymph % (Auto) (20-40) % [place] % (Auto) (2-11) % Eos % (Auto) (0-4) % Baso % (Auto) (0-2) % Lymph # (Auto) (1.2-4.9) X10*3/uL [place] # (Auto) (0.1-1.2) X10*3/uL Eos # (Auto) (0.0-0.4) X10*3/uL Baso # (Auto) (0.0-0.2) X10*3/uL Abs Immat Gran (auto) (0.00-0.03) X10*3/uL Absolute Neuts (auto) (2.0-8.3) X10*3/uL Absolute Nucleated RBC (0.0-0.012) X10*3/uL Nucleated RBC % (auto) (0.0-0.2) /100WBC Sodium 138 (135-145) mmol/L Potassium 4.5 (3.3-5.1) mmol/L Chloride 104 (96-108) mmol/L Carbon Dioxide 24 (22-29) mmol/L Anion Gap 15 (12-20) BUN 9 (9-16) mg/dL Creatinine 0.65 (0.5-1.4) mg/dL Estim Creat Clear Calc 52.0 Estimated GFR > 60 POC Glucose 122 H (60-115) mg/dL Random Glucose 127 H (60-115) mg/dL Calcium 9.4 (8.4-10.2) mg/dL Troponin I High Sens 4.0 (<3.5-17.0) ng/L Urine Color Urine Appearance Urine pH (5.0-8.0) Ur Specific [place] (1.005-1.025) Urine Protein (NEG-TRACE) MG/DL Urine Glucose (UA) (NEG) MG/DL Urine Ketones (NEG) MG/DL Urine Blood (NEG) Urine Nitrite (NEG) Ur Leukocyte Esterase (NEG) Urine RBC (0) /HPF Urine WBC (0-4) /HPF Ur Squamous Epith Cells /LPF Urine Bacteria /LPF Urine Mucus /LPF ECG Data Attestation: I personally reviewed and interpreted this ECG as follows: Discharge Plan Discharge Clinical Impression: Dizziness, Fall, Head injury Prescriptions: No Action empagliflozin [Jardiance] 25 mg tablet 25 mg PO QAM Qty: 90 RF: 1 Tresiba FlexTouch U-200 200 unit/mL (3 mL) insulin pen 20 unit subcut DAILY 90 Days Qty: 9 RF: 0 (DME) pen needle, diabetic 32 gauge x 5/32 needle See Rx Instructions ea .ROUTE QID Qty: 300 RF: 1 atorvastatin 40 mg tablet 1 tab PO BEDTIME RF: 0 metformin 500 mg tablet 1 tab PO DAILY RF: 0 trazodone 50 mg tablet 1 tab PO BEDTIME RF: 0 diltiazem HCl [Cartia XT] 240 mg capsule,extended release 24hr 1 cap PO QAM RF: 0 ferrous sulfate [FeroSul] 325 mg (65 mg iron) tablet 1 tab PO QAM RF: 0 loratadine 10 mg tablet 1 tab PO DAILY RF: 0 acetaminophen 325 mg Tablet 650 mg PO Q6H PRN (Reason: Pain) RF: 0 insulin aspart U-100 [Novolog Flexpen U-100 Insulin] 100 unit/mL (3 mL) insulin pen 8 unit subcut TIDAC RF: 0 lisinopril 5 mg tablet 5 mg PO DAILY RF: 0 gabapentin 100 mg capsule 100 mg PO BEDTIME RF: 0 cholecalciferol (vitamin D3) 25 mcg (1,000 unit) tablet 25 mcg PO DAILY RF: 0 (DME) lancets 33 gauge misc See Rx Instructions ea .ROUTE .MEDSUPPLY Qty: 100 RF: 0 pantoprazole 40 mg tablet,delayed release (DR/EC) 40 mg PO DAILY RF: 0 cyanocobalamin (vitamin B-12) 1,000 mcg tablet 1,000 mcg PO DAILY RF: 0 multivitamin Tablet 1 tab PO DAILY RF: 0 alendronate 70 mg tablet 70 mg PO QWEEK RF: 0 metformin 1,000 mg tablet 1,000 mg PO BID RF: 0 calcium carbonate 500 mg calcium (1,250 mg) tablet,chewable 500 mg PO BID RF: 0 Eliquis 5 mg tablet 5 mg PO BID RF: 0 fluticasone propionate 50 mcg/actuation spray,suspension 100 mcg intranasal DAILY RF: 0
--- NOTE | 2020-12-07 15:20 | PC.NURSE ---
Pt has removed her C collar and IV . No complaints at this time. PCT inroom for orthostatic VS.
[2020-12-07 15:52] LABS: Glucose, Whole Blood 122 mg/dL (60-115)
--- NOTE | 2020-12-07 15:57 | PC.NURSE ---
FAMILY REPORTING INCREASED CONFUSION. PT IS REDIRECTABLE BUT MORE ACTIVE THAN AT ARRIVAL
--- NOTE | 2020-12-07 17:15 | MHC.CM.ED ---
Addendum entered by Eun Barahona 12/07/20 17:33: Pt vaccinated with Pfizer on 11/06/2020 and 12/06/2020 Original Note: CM met with patient and son. Pt is Turkmen speaking only. Son speaks Syriac. Vending Machine Attendant used. Pt is A&Ox3. Reviewed PT recommendations for STR secondary to falls. After explanation, both patient and son agreeable. No HCP on file. HCP reviewed, completed and signed. HCP/son Rufino Cobos ([phone]). Copies given. Uploaded into [facility] and [facility] Online [employer]. Pt and son would like pt to be referred to facilities in [place] for STR. Pt lives alone. Rufino, her son, is her FELLMONGERING MACHINE OPERATOR through [employer]. Pt has FELLMONGERING MACHINE OPERATOR services 4 hours/day X5days/wk. Son returns to patient home to provided additional care 3-4 nights/week. Son plans to move pt in with him. Had questions about additional FELLMONGERING MACHINE OPERATOR hours. CM referred son to [facility] button attaching machine operator. CM suggested that son use this time while his mother is in rehab to move her into his home, and speak with [facility] about more help in his home to care for his mother. Pt uses a cane and a walker and has meals on wheels ([facility]). D/C plan is STR. Referrals placed in [place]. [facility] given. CM to follow for d/c needs.
[2020-12-07] MEDS: traZODone HCL 50 MG TABLET PO (20:23)
[2020-12-07] MEDS: Cyanocobalamin (Vitamin B-12) 1,000 MCG TABLET 1000 MCG PO (20:23)
[2020-12-07] MEDS: Fluticasone Propionate Nasal 16 GM SPRAY 2 SPRAY NOSTRIL-B (20:24)
[2020-12-07] MEDS: Atorvastatin Calcium 40 MG TABLET PO (20:25)
[2020-12-07] MEDS: Cholecalciferol (Vitamin D3) 25 MCG TABLET PO (20:25)
[2020-12-07] MEDS: Apixaban 5 MG TABLET PO (20:26)
[2020-12-07] MEDS: Multivitamin TABLET 1 TAB PO (20:26)
[2020-12-07] MEDS: Gabapentin 100 MG CAPSULE PO (20:26)
[2020-12-07] MEDS: Loratadine 10 MG TABLET PO (20:26)
[2020-12-07] MEDS: lisinopriL 5 MG TABLET PO (20:27)
--- NOTE | 2020-12-07 20:36 | PC.NURSE ---
Pt resting on stretcher in NAD, breathing with ease on RA. Pt pleasant, talkative, son at bedside. Pt Icelandic speaking only, son translating. Pt endorses mild neck ache as charted, otherwise denies discomfort. Pt alert, disoriented to place time and situation. Pt's son states this is normal, she gets confused a lot to be honest. Pt without known dementia dx. Pt's son brought food for patient, pt eating. Pt with red fall prevention socks, red wrist band on. Pt stretcher in low locked position, rails raised, call mccoy within reach. This RN clarified fosamax dosing with pt's son and reported it to pharmacy.
[2020-12-07 20:55] LABS: COVID-19 Test Negative (Negative)
[2020-12-07 21:07] LABS: Glucose, Whole Blood 185 mg/dL (60-115)
--- NOTE | 2020-12-07 22:44 | PC.NURSE ---
Pt rang in requesting to be changed. This RN to bedside, found pt incontinent of urine. Inc care provided. Pt VS assessed. Pt offers no complaints of pain/discomfort. Pt repositioned in bed to position of comfort. Pt stretcher in lowest locked position, rails raised, call mccoy remains within reach.
[2020-12-08] VITALS (7 sets, daily range): BP systolic 106–129; BP diastolic 54–85; PULSE 88–118; RESP 16; TEMP 36.4–37.2; O2SAT 95–100
--- NOTE | 2020-12-08 03:00 | PC.NURSE ---
Pt found to be incontinent of urine. Inc care provided, purewick placed for skin precautions and pt comfort.
--- NOTE | 2020-12-08 06:11 | PC.NURSE ---
Pt purewick draining appropriately, pt without need for incontinence care at this time
[2020-12-08] MEDS: Omeprazole 20 MG CAPSULE.DR PO (06:31)
[2020-12-08 08:42] LABS: Glucose, Whole Blood 244 mg/dL (60-115)
[2020-12-08] MEDS: Insulin Lispro 100 UNIT/ML 3 ML VIAL 8 UNIT SUBCUT ×3 (08:52→17:30)
[2020-12-08] MEDS: Insulin Glargine,Hum.rec.anlog 100 UNIT/ML 10 ML VIAL 16 UNIT SUBCUT (08:53)
[2020-12-08] MEDS: Apixaban 5 MG TABLET PO ×2 (08:56→22:34)
[2020-12-08] MEDS: Cholecalciferol (Vitamin D3) 25 MCG TABLET PO (08:56)
[2020-12-08] MEDS: Cyanocobalamin (Vitamin B-12) 1,000 MCG TABLET 1000 MCG PO (08:56)
[2020-12-08] MEDS: lisinopriL 5 MG TABLET PO (08:57)
[2020-12-08] MEDS: Loratadine 10 MG TABLET PO (08:57)
[2020-12-08] MEDS: Fluticasone Propionate Nasal 16 GM SPRAY 2 SPRAY NOSTRIL-B (08:57)
[2020-12-08] MEDS: Multivitamin TABLET 1 TAB PO (08:57)
[2020-12-08] MEDS: Ferrous Sulfate 324 MG TABLET.DR PO (08:57)
[2020-12-08] MEDS: dilTIAZem HCL CD 240 MG CAP.ER.DEG PO (10:50)
[2020-12-08] MEDS: metFORMIN HCl 1,000 MG TABLET 1000 MG PO ×2 (10:53→17:42)
--- NOTE | 2020-12-08 10:59 | MHC.CM.ED ---
pt is accepted at [facility] - [facility]. they can only offer a bed for tomorrow, thursday. they will be going for auth today. dc plan is to [facility] 12/09/20. cm to cont. to follow.
--- NOTE | 2020-12-08 11:22 | PC.NURSE ---
pt given breakfast, incontinent care provided. POC 244, insulin coverage given as documented. Pt resting quietly, no apparent distress. vss. son at bedside. will continue to monitor.
[2020-12-08 11:46] LABS: Glucose, Whole Blood 178 mg/dL (60-115)
[2020-12-08] MEDS: metFORMIN HCl 500 MG TABLET PO ×2 (12:53)
--- NOTE | 2020-12-08 17:59 | PC.NURSE ---
Joseph RN from case management team spoke with pt's son at the bedside regarding plan of care. pt resting quietly, meds given as documented, insulin coverage given as documented, vss. No complaints. Pt was changed from stretcher to hospital bed. Incontinent care provided, purewick placed.
--- NOTE | 2020-12-08 20:29 | ECG_ITS ---
Test Reason : TACHYCARDIA Blood Pressure : / mmHG Vent. Rate : 097 BPM Atrial Rate : 097 BPM P-R Int : 248 ms QRS Dur : 098 ms QT Int : 362 ms P-R-T Axes : 048 -25 030 degrees QTc Int : 459 ms Sinus rhythm with 1st degree A-V block Left axis deviation Abnormal ECG When compared with ECG of 07-DEC-2020 14:03, No significant change was found Referred By: Ac Kim Electronically Signed By:MATEUS FRIAS MD
[2020-12-08] MEDS: Atorvastatin Calcium 40 MG TABLET PO (22:34)
[2020-12-08] MEDS: traZODone HCL 50 MG TABLET PO (22:34)
[2020-12-08] MEDS: Gabapentin 100 MG CAPSULE PO (22:35)
[2020-12-09 06:00] VITALS: BP 110/56; PULSE 98; RESP 16; O2SAT 95
[2020-12-09 07:13] LABS: Glucose, Whole Blood 184 mg/dL (60-115)
[2020-12-09] MEDS: Omeprazole 20 MG CAPSULE.DR PO (07:14)
[2020-12-09] MEDS: Insulin Lispro 100 UNIT/ML 3 ML VIAL 8 UNIT SUBCUT (07:14)
[2020-12-09] MEDS: metFORMIN HCl 1,000 MG TABLET 1000 MG PO (07:14)
[2020-12-09] MEDS: Cyanocobalamin (Vitamin B-12) 1,000 MCG TABLET 1000 MCG PO (09:23)
[2020-12-09] MEDS: Loratadine 10 MG TABLET PO (09:23)
[2020-12-09] MEDS: Apixaban 5 MG TABLET PO (09:23)
[2020-12-09] MEDS: Insulin Glargine,Hum.rec.anlog 100 UNIT/ML 10 ML VIAL 16 UNIT SUBCUT (09:23)
[2020-12-09] MEDS: Multivitamin TABLET 1 TAB PO (09:23)
[2020-12-09] MEDS: Cholecalciferol (Vitamin D3) 25 MCG TABLET PO (09:23)
[2020-12-09 09:24] VITALS: BP 109/66; PULSE 112
[2020-12-09] MEDS: lisinopriL 5 MG TABLET PO (09:24)
[2020-12-09] MEDS: Ferrous Sulfate 324 MG TABLET.DR PO (09:24)
[2020-12-09 10:37] VITALS: BP 112/67; PULSE 118
[2020-12-09] MEDS: dilTIAZem HCL CD 240 MG CAP.ER.DEG PO (10:37)
[2020-12-09] MEDS: Fluticasone Propionate Nasal 16 GM SPRAY 2 SPRAY NOSTRIL-B (10:38)
--- NOTE | 2020-12-09 12:04 | MHC.CM.ED ---
pt is leaving for [facility] at 1 pm via [facility]. pt, pt's son , rn and are aware. cm to cont. to follow.
[2020-12-09 12:41] LABS: Glucose, Whole Blood 118 mg/dL (60-115)
== END 2020-12-09 12:10 | disposition skilled nursing facility (03) ==
PROVIDERS: Emergency Provider Emergency Medicine Emergency Medical Services; PCP Family Medicine
DX: S09.90XA Unspecified injury of head, initial encounter (principal); R42 Dizziness and giddiness; R29.6 Repeated falls; I10 Essential (primary) hypertension; E11.9 Type 2 diabetes mellitus without complications; I48.91 Unspecified atrial fibrillation; Z79.01 Long term (current) use of anticoagulants; W19.XXXA Unspecified fall, initial encounter; Y93.9 Activity, unspecified; Y92.9 Unspecified place or not applicable; Y99.9 Unspecified external cause status; Z20.822 Contact with and (suspected) exposure to COVID-19
CPT/HCPCS: 36415; 70450; 72125; 80048; 81001; 81003; 82947; 84484; 85025; 87086; 87635; 93005; 97162; 99285

== ENCOUNTER → 2021-01-22 07:41 | Outpatient (BNVA) | payer MEDICARE, SELFPAY | PROVIDERS: PCP Family Medicine; Visit Provider Nurse Practitioner Gerontology | DX: E11.65 Type 2 diabetes mellitus with hyperglycemia (principal); E78.5 Hyperlipidemia, unspecified; I10 Essential (primary) hypertension | CPT/HCPCS: 82947; 83036; 99212 ==